=== PATIENT | male | born 1955 | race Caucasian/White ===

== ENCOUNTER 2016-11-03 18:52 | Emergency (ER) | payer OTHER ==
[~2016-11-03] VITALS: Ht 162.6 cm; Wt 77.5 kg
[2016-11-03 18:58] VITALS: Ht 162.6 cm; Wt 77.5 kg
[2016-11-03] MEDS ORDERED: HYDROCODONE/APAP (5/325) TAB PO ONE (19:30)
[2016-11-03 19:38] LABS: ADD SCAN DIFF NO
[2016-11-03 19:39] LABS: BASOPHIL # 0.1 10^3/ul (0.0-0.1); BASOPHILS % 0.7 % (0.0-2.0); EOSINOPHILS # 0.1 10^3/ul (0.0-0.5); EOSINOPHILS % 1.8 % (0.0-7.0); HEMATOCRIT 43.2 % (42.0-52.0); HEMOGLOBIN 14.3 g/dl (14.0-18.0); LYMPHOCYTES # 2.6 10^3/ul (0.8-2.9); LYMPHOCYTES % 36.1 % (15.0-51.0); MEAN CORPUSCULAR HEMOGLOBIN 30.2 pg (29.0-33.0); MEAN CORPUSCULAR HGB CONC 33.1 g/dl (32.0-37.0); MEAN CORPUSCULAR VOLUME 91.1 fl (82.0-101.0); MEAN PLATELET VOLUME 11.3 fl (7.4-10.4); MONOCYTE # 0.6 10^3/ul (0.3-0.9); MONOCYTES % 8.8 % (0.0-11.0); NEUTROPHIL # 3.8 10^3/ul (1.6-7.5); NEUTROPHILS % 52.5 % (39.0-77.0); PLATELET COUNT 185 10^3/UL (140-415); RED BLOOD COUNT 4.74 10^6/ul (4.70-6.10); WHITE BLOOD COUNT 7.3 10^3/ul (4.8-10.8)
[2016-11-03 19:56] LABS: ALBUMIN 4.7 g/dl (3.3-4.9); CHLORIDE 103 mmol/L (97-110)
[2016-11-03 19:57] LABS: POTASSIUM 4.2 mmol/L (3.5-5.1); SODIUM 139 mmol/L (135-144)
[2016-11-03 19:59] LABS: ALBUMIN/GLOBULIN RATIO 1.46; ALKALINE PHOSPHATASE 92 IU/L (42-121); ANION GAP 14 (8-16); ASPARTATE AMINO TRANSFERASE 28 IU/L (15-46); BILIRUBIN,INDIRECT 0.3 mg/dl (0-1.1); BILIRUBIN,TOTAL 0.3 mg/dl (0.2-1.3); BLOOD UREA NITROGEN 17 mg/dl (7-20); CARBON DIOXIDE 26 mmol/L (21-31); CREATININE 0.81 mg/dl (0.61-1.24); GLUCOSE 88 mg/dl (70-220); TOTAL PROTEIN 7.9 g/dl (6.1-8.1)
[2016-11-03 20:00] LABS: ALANINE AMINOTRANSFERASE 41 IU/L (13-69); CALCIUM 9.6 mg/dl (8.4-10.2)
[2016-11-03 20:09] LABS: PROTIME 13.2 Sec (12.2-14.2)
[2016-11-03 20:10] LABS: PARTIAL THROMBOPLASTIN TIME 28.1 Sec (25.0-35.0)
--- NOTE | 2016-11-03 20:14 | RADRPT ---
PROCEDURE: CT Brain without. CLINICAL INDICATION: Headache TECHNIQUE: A CT of the brain was performed utilizing axial sections from the skull base through th e vertex without contrast. The scan was reviewed in soft tissue brain and high frequency resolution bone algorithm windows. Images were reviewed on a high-resolution PACS workstation. The calculate d radiation dose measures 720.23 mGy centimeters. The CTDI measures 42.81 mGy. One or more of the following dose reduction techniques were used: - Automated exposure control. - Adjustment of the mA and/or kV according to patient size . - Use of iterative reconstruction technique. Images were reviewed on a high-resolution PACS workstation COMPARISON: None available FINDINGS: The ventricles and sulci are symmetric and normal in size and morphology. There is no evidence of i ntracranial hemorrhage, mass effect, edema or midline shift. No abnormal intra-axial or extra-axial fluid collections are seen. The density of the brain is normal and the rodriguez/white matter different iation is well preserved. Brainstem and posterior fossa structures are equally unremarkable. The o sseous structures and visualized paranasal sinuses are unremarkable. The surrounding soft tissue sc alp and bony calvarium are intact and normal. IMPRESSION: 1. No acute intracranial findings. RPTAT: HH .Rowdy Cao MD, Date Time Electronically viewed and signed by .Rowdy Cao MD, MD on 11/03/2016 20:13 .d/
--- NOTE | 2016-11-03 20:14 | RADRPT ---
PROCEDURE: XR Chest. CLINICAL INDICATION: Headache TECHNIQUE: Single frontal chest x-ray. COMPARISON: None. FINDINGS: The lungs are clear. No focal opacification is seen. The cardiomediastinal silhouette is unremarka ble. The osseous structures are unremarkable. IMPRESSION: 1. No acute infiltrate. RPTAT: HH .Rowdy Cao MD, MD Date Time Electronically viewed and signed by .Rowdy Cao MD, on 11/03/2016 20:14 .d/
[2016-11-03 20:17] LABS: TROPONIN-I < 0.012 ng/ml (0.00-0.12)
[2016-11-03] MEDS ORDERED: HYDR-906 PO (21:07)
--- NOTE | 2016-11-03 21:14 | ERD ---
ER Documentation Chief Complaint Date/Time DATE: 11/03/16 TIME: 21:11 Chief Complaint headache x 5 days HPI This is a 61-year-old male presents to the ER with headache for the last 5 days. Patient states that his headache came on suddenly and he fell to the right in the middle of his head. Since then pain has been intermittent as sharp and burning in quality. Patient states every time his head hurts he also gets chest pain that is left-sided. He denies any shortness of breath. Chest pain is nonexertional. It is sharp in quality he denies any nausea or vomiting he denies any arm pain or jaw pain. He denies any fevers or chills. Patient denies any vision changes. He denies any trauma he denies any eye pain. ROS 12 point review of systems was done, all negative except per HPI. Medications Home Meds Active Scripts Hydrocodone/Acetaminophen (Conway 5-325 Tablet) 1 Each Tablet, 1 TAB PO Q6H Y for PAIN, #20 TAB Prov:JONES GARCÍA 11/03/16 Allergies Allergies: Coded Allergies: No Known Drug Allergies (Verified Allergy, Unknown, 11/03/16) PMhx/Soc Medical and Surgical Hx: pt denies Surgical Hx History of Surgery: No Hx Neurological Disorder: No Hx Respiratory Disorders: No Hx Cardiac Disorders: Yes (DYSLIPIDEMIA) Hx Psychiatric Problems: No Hx Miscellaneous Medical Probl: No Hx Alcohol Use: Yes Hx Substance Use: No Hx Tobacco Use: No Smoking Status: Never smoker Physical Exam Vitals Vital Signs Date Time Temp Pulse Resp B/P Pulse Ox O2 Delivery O2 Flow Rate FiO2 11/03/16 18:58 97.6 68 20 142/82 97 Physical Exam GENERAL: The patient is well developed and appropriate for usual state of health , in no apparent distress. HEENT: Atraumatic. Conjunctivae are pink. Pupils equal, round, and reactive to light. Extraocular muscles are grossly intact. Bilateral tympanic membranes are clear with no evidence of erythema, bulging or perforation. No sinus tenderness. NECK: C-spine is soft and supple. There is no cervical lymphadenopathy. CHEST: Clear to auscultation bilaterally. There are no rales, wheezes or rhonchi. HEART: Regular rate and rhythm. No murmurs, clicks, rubs or gallops. EXTREMITIES: Equal pulses bilaterally. There is no peripheral clubbing, cyanosis or edema. No focal swelling or erythema. Full range of motion. Grossly neurovascularly intact. NEURO: Alert and oriented. Cranial nerves II through XII are intact. Motor strength in all 4 extremities with 5/5 strength. Sensation grossly intact. Normal speech and gait. Negative Rhomberg. +2 DTRs. SKIN: There is no apparent rash or petechia. The skin is warm and dry. Result Diagram: 11/03/16192811/03/161928 Results 24 hrs Laboratory Tests Test 11/03/16 19:29 White Blood Count 7.310^3/ul Red Blood Count 4.7410^6/ul Hemoglobin 14.3g/dl Hematocrit 43.2% Mean Corpuscular Volume 91.1fl Mean Corpuscular Hemoglobin 30.2pg Mean Corpuscular Hemoglobin Concent 33.1g/dl Red Cell Distribution Width 13.0% Platelet Count 29383^3/UL Mean Platelet Volume 11.3fl Neutrophils % 52.5% Lymphocytes % 36.1% Monocytes % 8.8% Eosinophils % 1.8% Basophils % 0.7% Nucleated Red Blood Cells % 0.0/100WBC Neutrophils # 3.810^3/ul Lymphocytes # 2.610^3/ul Monocytes # 0.610^3/ul Eosinophils # 0.110^3/ul Basophils # 0.110^3/ul Nucleated Red Blood Cells # 0.010^3/ul Prothrombin Time 13.2Sec Prothrombin Time Ratio 1.0 INR International Normalized Ratio 1.00 Activated Partial Thromboplast Time 28.1Sec Sodium Level 139mmol/L Potassium Level 4.2mmol/L Chloride Level 103mmol/L Carbon Dioxide Level 26mmol/L Anion Gap 14 Blood Urea Nitrogen 17mg/dl Creatinine 0.81mg/dl Glucose Level 88mg/dl Calcium Level 9.6mg/dl Total Bilirubin 0.3mg/dl Direct Bilirubin 0.00mg/dl Indirect Bilirubin 0.3mg/dl Aspartate Amino Transf (AST/SGOT) 28IU/L Alanine Aminotransferase (ALT/SGPT) 41IU/L Alkaline Phosphatase 92IU/L Troponin I < 0.012ng/ml Total Protein 7.9g/dl Albumin 4.7g/dl Globulin 3.20g/dl Albumin/Globulin Ratio 1.46 Current Medications Medications (Trade) Dose Ordered Sig/Arcelia Route PRN Reason Start Time Stop Time Status Last Admin Dose Admin Acetaminophen/ Hydrocodone Bitart ([place] (5/325)) 1 tab ONCE ONCE PO 11/03/16 19:30 11/03/16 19:31 DC 11/03/16 19:25 Procedures/MDM Differential Diagnosis includes but is not limited to; tension headache, migraine headache, cluster headache, sinus headache, nonspecific febrile headache, trigeminal neurologia, subdural hematoma, subarachnoid bleeding, meningitis, encephalitis. Patient is neurologically intact with no focal neurological deficits. At this time I doubt acute intracranial pathology. Patient is extremely well-appearing he does not have a history of trauma. In regards to patient's chest pain differential diagnosis includes but is not limited to; STEMI, dissection, pneumothorax, PE, esophageal rupture, tamponade, pneumonia, pericarditis, GERD, musculoskeletal, endocarditis, anxiety. Etiology of chest pain is unknown however there is no evidence of acute cardiac problem. EKG was taken and read by 57bpm no ST elevation no t wave inversion. Patient's will be sent home with Conway. Needs to follow-up with his primary care doctor within 1-2 days return to ER sooner if symptoms worsen. My medical decision-making should with the patient he understands and agrees with plan. Departure Diagnosis: Primary Impression: Headache Condition: Stable Patient Instructions: Self-Care for Headaches Referrals: GUY LY (PCP) Additional Instructions: Call your primary care doctor TOMORROW for an appointment during the next 1-2 days.See the doctor sooner or return here if your condition worsens before your appointment time. JONES GARCÍA Nov 03, 2016 21:13
[2016-11-03 21:20] VITALS: BP 142/82; RESP 20
== END 2016-11-03 21:22 | disposition home or self-care (01) ==
LOC: FTE 18:52
DX: R51 Headache (principal); R07.9 Chest pain, unspecified
CPT/HCPCS: 36415; 70450; 71010; 80053; 84484; 85025; 85610; 85730; 93005